=== PATIENT | female | born 1975 | race Hispanic/Latino ===

== ENCOUNTER 2017-10-19 19:00 | Emergency (ER) | payer BC ==
[~2017-10-19] VITALS: Ht 152.4 cm; Wt 72.6 kg
[2017-10-19] MEDS ORDERED: DICYCLOMINE HCL 20 MG/2 ML VIAL IM STA (19:24)
[2017-10-19] MEDS ORDERED: ONDANSETRON HCL 4 MG ORAL DISINTEGRATING TAB ONE (19:27)
[2017-10-19] MEDS ORDERED: DICYCLOMINE HCL 20 MG/2 ML VIAL IM ONE (19:27)
[2017-10-19] MEDS ORDERED: PANTOPRAZOLE 40 MG 10ML VIAL ONE (19:28)
[2017-10-19] MEDS ORDERED: ONDANSETRON HCL 4 MG ORAL DISINTEGRATING TAB PO ONE (19:30)
[2017-10-19] MEDS ORDERED: SODIUM CHLORIDE 0.9% 1000ML 1,000 ML IV SCH (19:30)
[2017-10-19] MEDS ORDERED: PANTOPRAZOLE 40 MG 10ML VIAL IV STA (19:36)
[2017-10-19 20:00] LABS: ALANINE AMINOTRANSFERASE 53 IU/L (0-55); ALBUMIN 3.7 g/dL (3.5-5.0); ALBUMIN/GLOBULIN RATIO 0.9 (0.8-2.0); ALKALINE PHOSPHATASE 72 IU/L (40-150); ANION GAP 14.4 mmol/L (8-16); BLOOD UREA NITROGEN 11 mg/dL (7-26); BUN/CREATININE RATIO 14 (6-25); CALCIUM 9.4 mg/dL (8.4-10.2); CARBON DIOXIDE 22 mmol/L (22-29); CHLORIDE 106 mmol/L (98-107); CREATININE, SERUM 0.77 mg/dL (0.57-1.11); EST GLOMERULAR FILTRATION RATE > 60 ML/MIN (60-); GLUCOSE 119 mg/dL (74-118); POTASSIUM 3.4 mmol/L (3.5-5.1); SODIUM 139 mmol/L (136-145)
[2017-10-19 20:07] LABS: AMYLASE 38 U/L (25-125); LIPASE 36 U/L (8-78)
--- NOTE | 2017-10-19 20:18 | Diagnostic Imaging Report ---
RADIOGRAPH(S) OF THE ABDOMEN AND PELVIS, 3 view(s) HISTORY: Nausea vomiting diarrhea COMPARISON: None available. FINDINGS: No specific evidence of obstruction or ileus. No definite urinary tract calcification. A few pelvic calcifications, likely phleboliths. Right convex curvature of the thoracolumbar spine. The bones are partially obscured by stool and overlying bowel gas. A 6 mm calcified density projects at the periphery of the left upper lung, compatible with a calcified granuloma. IMPRESSION: Nonobstructive bowel gas pattern. Signed by: Dr. Steven Call D.O., M.M.M. on 10/19/2017 8:14 PM
[2017-10-19 20:53] LABS: BILIRUBIN,URINE NEGATIVE (NEGATIVE); CLARITY,URINE CLEAR (CLEAR); COLOR,URINE YELLOW (YELLOW); KETONES,URINE NEGATIVE (NEGATIVE); LEUKOCYTE ESTERASE ,URINE NEGATIVE (NEGATIVE); NITRITE,URINE NEGATIVE (NEGATIVE); PROTEIN,URINE DIPSTICK NEGATIVE (NEGATIVE); URINE UROBILINOGEN 0.2 mg/dL (0.2 - 1)
[2017-10-19 21:05] LABS: EPITHELIAL CELLS,URINE MODERATE /LPF; MUCUS,URINE RARE (RARE); RBC,URINE 0-5 /HPF (0-5); WBC,URINE (MAN) 0-5 /HPF (0-5)
[2017-10-19 21:38] LABS: BASOPHILS % 0.3 % (0.0-1.0); EOSINOPHILS # (AUTO) 0.1 (0.0-0.4); EOSINOPHILS % 0.6 % (0.0-6.0); HEMATOCRIT 37.4 % (34.2-44.1); HEMOGLOBIN 13.2 g/dL (12.0-16.0); MEAN CORPUSCULAR HEMOGLOBIN 29.3 pg (28-32); MEAN CORPUSCULAR HGB CONC 35.3 g/dL (31-35); MEAN CORPUSCULAR VOLUME 83.1 fL (81-99); MONOCYTES % 7.7 % (4.4-11.3); NEUTROPHILS # (AUTO) 9.9 (2.1-6.9); NEUTROPHILS % 76.1 % (38.7-80.0); PLATELET COUNT 352 x10e3/uL (140-360); RED CELL DISTRIBUTION WIDTH 13.5 % (11.7-14.4)
== END 2017-10-20 00:02 | disposition home or self-care (01) ==
LOC: EDBD 19:00 → ER 19:00
DX: R11.2 Nausea with vomiting, unspecified (principal); R10.13 Epigastric pain; R19.7 Diarrhea, unspecified
CPT/HCPCS: 36415; 74022; 80053; 81001; 82150; 83690; 85025; 96372; 96374; 99284; J0500; J7030